=== PATIENT | male | born 1945 | race Caucasian/White ===

== ENCOUNTER 2018-06-06 07:52 | Inpatient (IN) ==
--- NOTE | 2018-05-30 08:27 | EKG Report ---
Test Performed on : 05/30/2018 08:19:53 AM Test Reason : PAT Blood Pressure : / mmHG Vent. Rate : 074 BPM Atrial Rate : 074 BPM P-R Int : 174 ms QRS Dur : 078 ms QT Int : 388 ms P-R-T Axes : 023 -23 001 degrees QTc Int : 430 ms Normal sinus rhythm. Voltage criteria for left ventricular hypertrophy Abnormal ECG When compared with ECG of 25-JUL-2015 14:36, No significant change was found Confirmed by Mekhi Pugh MD ([id number]) on 05/31/2018 7:19:18 AM
[2018-05-30 08:41] LABS: URINE SOURCE CLEAN CATCH
[2018-05-30 08:47] LABS: BASO# 0.01 X1000 (0.0-0.2); BASO% 0.2 % (0.0-0.8); EOS# 0.14 X1000 (0.0-0.7); EOS% 2.9 % (0.0-10.0); HEMATOCRIT 41.9 % (42.0-52.0); HEMOGLOBIN 13.9 g/dL (14.0-18.0); LYMPH# 1.27 X1000 (1.2-3.4); LYMPH% 26.5 % (20.5-51.1); MCH 29.5 PG (27-31); MCHC 33.2 g/dL (33-37); MONO# 0.33 X1000 (0.11-0.59); MONO% 6.9 % (1.7-9.3); MPV 10.8 FL (7.4-10.4); NEUT# 3.05 X1000 (1.4-6.5); NEUT% 63.5 % (42.2-75.2); PLT 138 X1000 (130-400); RBC 4.71 XMIL (4.7-6.1); RDW 14.4 % (11.5-14.5)
[2018-05-30 08:51] LABS: BILIRUBIN URINE NEGATIVE (NEGATIVE); BLOOD URINE NEGATIVE (NEGATIVE); COLOR YELLOW; GLUCOSE URINE NEGATIVE (NEGATIVE); KETONE URINE NEGATIVE (NEGATIVE); LEUKOCYTES URINE NEGATIVE (NEGATIVE); NITRITE URINE NEGATIVE (NEGATIVE); PROTEIN URINE NEGATIVE (NEGATIVE); SP GRAVITY URINE 1.013; TURBIDITY URINE CLEAR (CLEAR); UROBILINOGEN URINE NORMAL (NORMAL)
[2018-05-30 08:56] LABS: UR EPITHELIAL CELLS <10 /HPF (<10); URINE BACTERIA NEGATIVE /HPF; URINE RBC <10 /HPF (<10); URINE WBC <10 /HPF (<10)
[2018-05-30 09:05] LABS: INR 1.03; PROTIME 14.3 Seconds (11.0-16.0)
[2018-05-30 09:06] LABS: PTT 27.7 Seconds (22.3-41.8)
[2018-05-30 11:54] LABS: AGAP 13; BUN 15 mg/dL (8-22); CALCIUM 9.6 mg/dL (8.8-10.2); CHLORIDE 101 mmol/L (98-107); COSMO 282; ESTIMATED GFR > 60; GLUCOSE 156 mg/dL (70-104); POTASSIUM 4.2 mmol/L (3.5-5.1); SODIUM 139 mmol/L (136-145); TCO2 25 mmol/L (25-35)
[2018-06-06] MEDS ORDERED: DIPRIVAN 1% ONE (08:06)
[2018-06-06] MEDS ORDERED: XYLOCAINE-MPF 2% ONE (08:07)
[2018-06-06] MEDS ORDERED: FENTANYL ONE (08:08)
[2018-06-06] MEDS ORDERED: OFIRMEV 1000 MG/ISOTONIC SOLN 1,000 MG/100 ML BOTTLE ONE (08:09)
[2018-06-06] MEDS ORDERED: ZOFRAN ONE ×2 (08:09→11:06)
[2018-06-06] MEDS ORDERED: COLACE ONE (08:11)
[2018-06-06] MEDS ORDERED: PEPCID ONE (08:11)
[2018-06-06] MEDS ORDERED: LYRICA ONE (08:11)
[2018-06-06] MEDS ORDERED: REGLAN ONE (08:11)
[2018-06-06] MEDS ORDERED: CELEBREX ONE (08:12)
[2018-06-06] MEDS ORDERED: 1/2 NS 500 ML ONE (08:12)
[2018-06-06] MEDS ORDERED: KEFZOL 2 GM/D5W 2 GM/50 ML IVPB ONE (08:12)
[2018-06-06] MEDS ORDERED: MARCAINE 0.25% PF ONE (09:42)
[2018-06-06] MEDS ORDERED: CYKLOKAPRON 1,000 MG/NS 1,000 MG/100 ML IVPB ONE (09:42)
[2018-06-06] MEDS ORDERED: DURAMORPH ONE (09:42)
[2018-06-06] MEDS ORDERED: TORADOL ONE (09:42)
[2018-06-06] MEDS ORDERED: EXPAREL 1.3% ONE (09:42)
[2018-06-06] MEDS ORDERED: NEOSPORIN G.U. IRRIGANT ONE (09:43)
[2018-06-06] MEDS ORDERED: ROBINUL ONE (09:48)
[2018-06-06] MEDS ORDERED: SODIUM CHLORIDE 0.9% 10 ML ONE (09:48)
[2018-06-06] MEDS ORDERED: NORCURON ONE (09:48)
[2018-06-06] MEDS ORDERED: QUELICIN (DOSE) ONE (09:48)
[2018-06-06] MEDS ORDERED: SODIUM CHLORIDE 0.9% ONE (09:59)
[2018-06-06] MEDS ORDERED: NEO-SYNEPHRINE ONE (10:59)
[2018-06-06 11:12] LABS: URINE SOURCE CATH
[2018-06-06 11:21] LABS: BILIRUBIN URINE NEGATIVE (NEGATIVE); BLOOD URINE TRACE (NEGATIVE); COLOR YELLOW; GLUCOSE URINE NEGATIVE (NEGATIVE); KETONE URINE NEGATIVE (NEGATIVE); LEUKOCYTES URINE NEGATIVE (NEGATIVE); NITRITE URINE NEGATIVE (NEGATIVE); PROTEIN URINE NEGATIVE (NEGATIVE); SP GRAVITY URINE 1.002; TURBIDITY URINE CLEAR (CLEAR); UROBILINOGEN URINE NORMAL (NORMAL)
[2018-06-06 11:23] LABS: UR EPITHELIAL CELLS <10 /HPF (<10); URINE BACTERIA NEGATIVE /HPF; URINE WBC <10 /HPF (<10)
[2018-06-06] MEDS: MORPHINE ONE ×6 (12:29→13:02)
[2018-06-06] MEDS ORDERED: PHENERGAN ONE (12:41)
[2018-06-06] MEDS ORDERED: NS 1,000 ML ONE (12:42)
--- NOTE | 2018-06-06 12:43 | Diag Imaging Result Doc PS360 ---
EXAM: SHOULDER 1 VIEW LEFT 06/06/2018 HISTORY: post op total shoulder TECHNIQUE: Left shoulder one view portable COMMENT: There are no previous studies. There are degenerative changes in the acromioclavicular joint. There is a total shoulder arthroplasty. There is no definite evidence of acute fracture or dislocation. IMPRESSION: Postsurgical change and osteoarthritis. Electronically signed by Mickey Wagoner 06/06/2018 12:41 PM
[2018-06-06] MEDS ORDERED: OXY IR ONE (13:14)
[2018-06-06] MEDS ORDERED: MORPHINE IV PRN ×3 (13:45)
[2018-06-06] MEDS ORDERED: OXY IR PO PRN (13:45)
[2018-06-06] MEDS ORDERED: ZOFRAN PO PRN (13:45)
[2018-06-06] MEDS ORDERED: CYKLOKAPRON 1,000 MG in NS 100 ML IV ONE (16:00)
[2018-06-06] MEDS: TYLENOL PO SCH ×2 (16:05→19:57)
[2018-06-06] MEDS: NS 1,000 ML IV SCH (16:07)
--- NOTE | 2018-06-06 16:44 | OPERATIVE NOTE ---
PROCEDURE DATE: 06/06/2018 PREOPERATIVE DIAGNOSIS: Left degenerative glenohumeral arthritis. POSTOPERATIVE DIAGNOSIS: Left degenerative glenohumeral arthritis. PROCEDURE: Left reverse total shoulder arthroplasty with DePuy Delta Xtend size 10 press-fit stem, a 42 plus 6 humeral cup, a 42 eccentric Glenosphere, and a standard metaglene. SURGEON: Anthony Garcia MD. ASP NET MVC DEVELOPER: ANAND Angel. SECOND GAS DERRICK OPERATOR: James Sewell RN. ANESTHESIA: General. IV FLUIDS: 1400 mL lactated Ringer's. ESTIMATED BLOOD LOSS: 200 mL. COMPLICATIONS: None. INDICATION: The patient is a pleasant, 72-year-old male with a chronic history of worsening pain and discomfort in his left shoulder. Radiographic studies reveal findings consistent with glenohumeral arthritis and recommendation to proceed with left reverse total shoulder arthroplasty was offered. Risks and benefits of surgery were explained, including the risks of anesthesia, , bleeding, infection, failure to relieve pain, postoperative stiffness, nerve injury, blood clots, and other imponderables. All questions were answered and the patient and family wish to proceed with surgery. DETAILS OF OPERATION: Patient was taken to the operating room and placed supine on the operating table. Once adequate anesthesia was obtained the patient was placed in the semi-Schafer beach- chair position. The left shoulder was subsequently prepped and draped in sterile fashion. A standard deltopectoral incision made with a skin knife. Hemostasis was obtained using electrocautery. The deltopectoral interval was then developed. Silva retractors placed. Approximately 1 cm medial to the subscapularis tendon insertion this was released. A stay suture was placed in the medial portion of the tendon. The shoulder was then dislocated anteriorly. The remaining portion of the posterosuperior aspect of the rotator cuff was released. A starting reamer was then passed and sequential reaming was conducted. Intramedullary guide with a proximal humeral cutting block was pinned in position. The humeral head was then resected. A protective disk was then placed. Attention then turned to the glenoid. Circumferential dissection was performed with a deep knife. The reaming guide was then placed in position and guide pin was placed. Reaming was then conducted. The central hole was then dilated. The wound was copiously with antibiotic pulsatile lavage. A standard metaglene was then impacted in position. Three locking screws were placed and 1 nonlocking screw. It had good purchase. The wound was copiously once again. A 42 eccentric Glenosphere was then placed with the eccentricity placed inferiorly. Attention then turned to the proximal humerus where the intramedullary guide was placed in position and the proximal humerus was then reamed. After [*]performed the wound was copiously irrigated with antibiotic pulsatile lavage. A size 10 press-fit stem was impacted with autologous bone graft and had good fit. Trial cup size was performed and a 42 plus 6 appeared to be the correct size. The trial cup was removed. The wound was copiously irrigated with antibiotic pulsatile lavage. A 42 plus 6 humeral cup was then impacted, shoulder was reduced, carried through range of motion, and had good range of motion and good stability. Exparel was placed in the deep soft tissue. The wound was copiously irrigated once again. A #2 FiberWire was used to repair the subscapularis tendon. The remaining portion of the Exparel was placed in the deep soft tissue, as well as the subcutaneous tissue. The wound was copiously irrigated once again with antibiotic pulsatile lavage. A 2-0 Vicryl was then used to repair the subcutaneous tissue, followed by a running 2-0 Prolene. Benzoin and Steri-Strips applied. Adaptic, sterile 4 x 4, ABD pad, and tape was applied to the left shoulder, followed by a shoulder immobilizer. All counts correct. Patient tolerated the procedure well and was transferred to the recovery room in stable condition. cc: Anthony Garcia MD
[2018-06-06] MEDS: KEFZOL 2 GM/D5W 2 GM/50 ML IVPB IV SCH (18:49)
[2018-06-06] MEDS: PERIDEX MT SCH (19:55)
[2018-06-06] MEDS: PRINIVIL PO SCH (19:56)
[2018-06-06] MEDS: LIPITOR PO SCH (19:56)
[2018-06-06] MEDS: NEURONTIN PO SCH (19:56)
[2018-06-06] MEDS ORDERED: HUMULIN 70/30 SUBQ SCH (21:00)
[2018-06-06] MEDS ORDERED: GLUCOTROL XL PO SCH (21:00)
[2018-06-06] MEDS ORDERED: AMBIEN PO SCH (21:00)
[2018-06-06] MEDS ORDERED: INSULIN PEN NEEDLES ONE (22:49)
[2018-06-06] MEDS ORDERED: BENADRYL PO PRN (23:51)
[2018-06-06] MEDS: OXY IR PO PRN (23:56)
[2018-06-07] MEDS: PRINIVIL PO SCH ×2 (01:30→08:01)
[2018-06-07] MEDS: PERIDEX MT SCH ×2 (01:30→08:00)
[2018-06-07] MEDS: LIPITOR PO SCH (01:30)
[2018-06-07] MEDS: NEURONTIN PO SCH ×2 (01:30→08:00)
[2018-06-07] MEDS: TYLENOL PO SCH ×3 (01:31→08:01)
[2018-06-07] MEDS: KEFZOL 2 GM/D5W 2 GM/50 ML IVPB IV SCH (01:45)
[2018-06-07] MEDS: NS 1,000 ML IV SCH (01:45)
[2018-06-07 06:27] LABS: HEMATOCRIT 34.3 % (42.0-52.0); HEMOGLOBIN 11.1 g/dL (14.0-18.0)
[2018-06-07 06:37] LABS: AGAP 10; BUN 11 mg/dL (8-22); CALCIUM 7.4 mg/dL (8.8-10.2); CHLORIDE 102 mmol/L (98-107); COSMO 277; CREATININE 0.9 mg/dL (0.7-1.2); ESTIMATED GFR > 60; GLUCOSE 137 mg/dL (70-104); POTASSIUM 3.9 mmol/L (3.5-5.1); SODIUM 138 mmol/L (136-145); TCO2 26 mmol/L (25-35)
[2018-06-07 08:17] VITALS: BP 134/75
--- NOTE | 2018-06-07 08:29 | PROGRESS NOTE ---
DATE: 06/07/2018 SUBJECTIVE: The patient is a pleasant 72-year-old male who is 1 day status post left reverse shoulder arthroplasty. He is currently resting comfortably. OBJECTIVE: On physical exam, the patient's left upper extremity dressing is intact. He is neurovascularly intact distally. LABORATORY DATA: His hemoglobin is 11.1 hematocrit 34.3. IMPRESSION: Postoperative day #1 status post left reverse shoulder arthroplasty. PLANS: At this point, we will change his dressing, discontinue his Calderon and Hep-Lock his IV. We are discharging home. Will arrange for outpatient physical therapy. cc: Anthony Garcia MD
[2018-06-07] MEDS ORDERED: FLOMAX PO SCH (09:00)
[2018-06-07] MEDS: OXY IR PO PRN (10:24)
== END 2018-06-07 11:22 | disposition home or self-care (01) | DRG 483 ==
LOC: SURHOLD 07:52 → 4N 10:56
PROVIDERS: ADMIT Orthopaedic Surgery Adult Reconstructive Orthopaedic Surgery; ATTEND Orthopaedic Surgery Adult Reconstructive Orthopaedic Surgery
CPT/HCPCS: 73020; 80048; 81001; 82948; 85014; 85018; 85025; 85610; 85730; 86850; 86900; 86901; 88305; 88311; 93005; 93010; 94760; 94761; 94799; 97162; 97530; A9270; C9290; J0131; J0330; J0690; J1885; J2270; J2274; J2275; J2370; J2405; J2550; J3010; J7030; Q9974; S0020; XXXXX

== ENCOUNTER 2019-04-17 07:12 | Inpatient (IN) ==
--- NOTE | 2019-04-10 09:59 | EKG Report ---
Test Performed on : 04/10/2019 09:54:58 AM Test Reason : PAT Blood Pressure : / mmHG Vent. Rate : 076 BPM Atrial Rate : 076 BPM P-R Int : 150 ms QRS Dur : 082 ms QT Int : 378 ms P-R-T Axes : 041 -23 -08 degrees QTc Int : 425 ms Normal sinus rhythm. Moderate voltage criteria for LVH, may be normal variant Borderline ECG When compared with ECG of 30-MAY-2018 08:19, No significant change was found Confirmed by Hema GEE, Javon Mojica ([id number]) on 04/10/2019 10:22:47 AM
[2019-04-10 10:02] LABS: URINE SOURCE CLEAN CATCH
[2019-04-10 10:13] LABS: BASO# 0.01 X1000 (0.0-0.2); BASO% 0.2 % (0.0-0.8); EOS# 0.09 X1000 (0.0-0.7); EOS% 1.9 % (0.0-10.0); HEMATOCRIT 41.3 % (42.0-52.0); HEMOGLOBIN 13.8 g/dL (14.0-18.0); LYMPH% 24.9 % (20.5-51.1); MCH 29.1 PG (27-31); MCHC 33.4 g/dL (33-37); MCV 86.9 FL (81-99); MONO# 0.33 X1000 (0.11-0.59); MONO% 6.9 % (1.7-9.3); MPV 10.8 FL (7.4-10.4); NEUT# 3.18 X1000 (1.4-6.5); NEUT% 66.1 % (42.2-75.2); PLT 132 X1000 (130-400); RBC 4.75 XMIL (4.7-6.1); RDW 14.8 % (11.5-14.5); WBC 4.81 X1000 (4.8-10.8)
[2019-04-10 10:16] LABS: BILIRUBIN URINE NEGATIVE (NEGATIVE); BLOOD URINE NEGATIVE (NEGATIVE); COLOR YELLOW; GLUCOSE URINE NEGATIVE (NEGATIVE); KETONE URINE NEGATIVE (NEGATIVE); LEUKOCYTES URINE NEGATIVE (NEGATIVE); NITRITE URINE NEGATIVE (NEGATIVE); PH URINE 6.5; PROTEIN URINE NEGATIVE (NEGATIVE); SP GRAVITY URINE 1.014; TURBIDITY URINE CLEAR (CLEAR); UROBILINOGEN URINE NORMAL (NORMAL)
[2019-04-10 10:18] LABS: UR EPITHELIAL CELLS <10 /HPF (<10); URINE BACTERIA NEGATIVE /HPF; URINE RBC <10 /HPF (<10); URINE WBC <10 /HPF (<10)
[2019-04-10 10:22] LABS: INR 1.06
[2019-04-10 10:23] LABS: PTT 27.1 Seconds (22.3-41.8)
[2019-04-10 10:28] LABS: HEMOGLOBIN A1C 7.6 % (4.8-6.0)
[2019-04-10 10:54] LABS: AGAP 14; BUN 12 mg/dL (8-22); CALCIUM 8.9 mg/dL (8.8-10.2); CHLORIDE 101 mmol/L (98-107); COSMO 281; ESTIMATED GFR > 60; GLUCOSE 170 mg/dL (70-104); POTASSIUM 4.8 mmol/L (3.5-5.1); SODIUM 139 mmol/L (136-145); TCO2 24 mmol/L (25-35)
[2019-04-17] MEDS ORDERED: VERSED ONE (07:53)
[2019-04-17] MEDS ORDERED: FENTANYL ONE (07:53)
[2019-04-17] MEDS ORDERED: DIPRIVAN 1% ONE ×2 (07:53→10:04)
[2019-04-17] MEDS ORDERED: ROBINUL ONE (07:53)
[2019-04-17] MEDS ORDERED: XYLOCAINE-MPF 2% ONE ×2 (07:53→10:07)
[2019-04-17] MEDS ORDERED: COLACE ONE (08:06)
[2019-04-17] MEDS ORDERED: PEPCID ONE (08:06)
[2019-04-17] MEDS ORDERED: REGLAN ONE (08:06)
[2019-04-17] MEDS ORDERED: LYRICA ONE (08:06)
[2019-04-17] MEDS ORDERED: KEFZOL 1 GM/D5W 2 GM/100 ML IVPB ONE (08:07)
[2019-04-17] MEDS ORDERED: LR 1,000 ML ONE (08:07)
[2019-04-17] MEDS ORDERED: CELEBREX ONE (08:07)
[2019-04-17] MEDS ORDERED: MARCAINE 0.25% PF ONE (09:07)
[2019-04-17] MEDS ORDERED: DURAMORPH ONE (09:07)
[2019-04-17] MEDS ORDERED: TORADOL ONE ×2 (09:07→09:59)
[2019-04-17] MEDS ORDERED: CYKLOKAPRON 1,000 MG/NS 1,000 MG/100 ML IVPB ONE ×2 (09:08→09:10)
[2019-04-17] MEDS ORDERED: VANCOMYCIN ONE (09:08)
[2019-04-17] MEDS ORDERED: SODIUM CHLORIDE 0.9% ONE (09:08)
[2019-04-17] MEDS ORDERED: NEOSPORIN G.U. IRRIGANT ONE (09:10)
[2019-04-17] MEDS ORDERED: EXPAREL 1.3% ONE (09:10)
[2019-04-17] MEDS ORDERED: OFIRMEV 1000 MG/ISOTONIC SOLN 1,000 MG/100 ML BOTTLE ONE (09:45)
[2019-04-17] MEDS ORDERED: DECADRON ONE (09:45)
[2019-04-17 10:17] LABS: URINE SOURCE CATH
[2019-04-17 10:21] LABS: BILIRUBIN URINE NEGATIVE (NEGATIVE); BLOOD URINE TRACE (NEGATIVE); COLOR YELLOW; GLUCOSE URINE NEGATIVE (NEGATIVE); KETONE URINE NEGATIVE (NEGATIVE); LEUKOCYTES URINE NEGATIVE (NEGATIVE); NITRITE URINE NEGATIVE (NEGATIVE); PROTEIN URINE TRACE mg/dL (NEGATIVE); SP GRAVITY URINE 1.023; TURBIDITY URINE CLEAR (CLEAR); UROBILINOGEN URINE NORMAL (NORMAL)
[2019-04-17 10:23] LABS: UR EPITHELIAL CELLS <10 /HPF (<10); URINE BACTERIA NEGATIVE /HPF; URINE RBC <10 /HPF (<10); URINE WBC <10 /HPF (<10)
[2019-04-17] MEDS ORDERED: ZOFRAN ONE (11:35)
[2019-04-17] MEDS ORDERED: NS 1,000 ML ONE (11:49)
[2019-04-17] MEDS ORDERED: OXY IR PO PRN ×2 (12:15)
[2019-04-17] MEDS ORDERED: MORPHINE IV PRN ×2 (12:15)
[2019-04-17] MEDS ORDERED: ZOFRAN PO PRN (12:15)
--- NOTE | 2019-04-17 12:31 | Diag Imaging Result Doc PS360 ---
EXAM: KNEE 1-2 VIEWS-RIGHT INDICATION: post total knee right TECHNIQUE: One view COMPARISON: None. FINDINGS: There has been a recent right knee arthroplasty. Arthroplasty hardware is in the expected position. There is no evidence of periprosthetic fracture. Anterior skin germania and a drainage catheter are in place. IMPRESSION: Satisfactory postoperative knee. Electronically signed by Serg Gamboa 04/17/2019 12:31 PM
[2019-04-17] MEDS: NS 1,000 ML IV SCH (12:42)
[2019-04-17] MEDS: KEFZOL 2 GM/D5W 2 GM/50 ML IVPB IV SCH (18:04)
--- NOTE | 2019-04-17 20:54 | OPERATIVE NOTE ---
PROCEDURE DATE: 04/17/2019 PREOPERATIVE DIAGNOSIS: Degenerative arthritis of the right knee. POSTOPERATIVE DIAGNOSIS: Degenerative arthritis of the right knee. PROCEDURE: Right total knee arthroplasty with a DePuy Attune size 8 posterior stabilized femur, a size 8 tibial tray, a 7 mm rotating platform tibial insert, and a 38 mm medialized anatomic patella. SURGEON: Dr. Anthony Garcia. FISH FARMER: ANAND Sinclair, who was necessary for proper positioning, retraction and manipulation of the extremity during the case, and improved efficiency. SECOND FLOTATION TENDER HELPER: ANAND Riley. ANESTHESIA: Spinal. IV FLUIDS: 1300 mL lactated Ringer's. ESTIMATED BLOOD LOSS: 50 mL. TOURNIQUET TIME: 100 minutes at 300 mmHg. COMPLICATIONS: None. INDICATION: The patient is a 73-year-old male who has longstanding history of pain and discomfort of his right knee. X-rays revealed significant degenerative arthritis and recommendation to proceed with right total knee arthroplasty was offered. Risks and benefits of surgery were explained, including the risks of anesthesia, , bleeding, infection, failure to relieve pain, postoperative stiffness, nerve injury, blood clots, and other imponderables. All questions were answered and the patient and family wished to proceed with surgery. DETAILS OF OPERATION: The patient was taken to the operating room and underwent spinal anesthesia. After adequate anesthesia was obtained, he was placed supine on the operating table. Right lower extremity was subsequently prepped and draped in the usual sterile fashion. An Esmarch was used to exsanguinate the right lower extremity, and tourniquet was inflated to 300 mmHg. A standard anterior incision was made with a skin knife. Medial and lateral skin envelopes were developed. A standard medial parapatellar arthrotomy was then performed. Patellar fat pad was excised. The patella was everted and resected in standard fashion. Protective disk was then placed. Attention was then turned to the distal femur where starting approximately 1 cm anterior to the PCL insertion, a starting reamer was passed. Intramedullary guide with a distal femoral cutting block was pinned in position. Distal femoral cut was then performed in standard fashion. A sizing block was placed in a size 8. Corresponding pins were placed. A size 8 cutting block was placed in position. Anterior, posterior, and chamfer cuts were then made. Attention was then turned to the proximal tibia where using extramedullary guide, the proximal tibia cutting block was pinned in position. It had good alignment confirmed with the alignment segundo. The proximal tibia was then resected. Medial and lateral menisci were excised. A curved osteotome was used to remove the posterior osteophytes off the distal femur. A spacer block was placed and had good soft tissue balance in both flexion and extension. Attention then turned to the proximal tibia where a size 8 tibial tray appeared to be correct size. This was pinned in position. This was followed by a central reamer and a fin punch. A box cutting guide was pinned on the distal femur. A box cut was performed. A trial tibial insert was then placed and 2 lug holes were drilled. Trial tibial insert was then placed. Attention was turned to the patella. Protective disc was removed. A size 38 appeared to correct size. Corresponding holes were drilled. The trial patellar components were then placed. The patient did have some lateral translation with flexion. Therefore, a lateral release was performed. The patient had good patellofemoral tracking after this had been performed. The trial components were then removed. Copious irrigation was performed with antibiotic pulsatile lavage while vancomycin was mixed with cement on the back table. Sequential cementing was then performed first with the tibial tray and excess cement was removed with a Hector, followed by the femoral component and excess cement was removed with a Hector, followed by a trial tibial insert. The knee was then placed in full extension and axial loading was maintained while cement cured. The patellar components were cemented in standard fashion. Patellar clamp was placed. While cement was curing, Exparel was placed in deep soft tissue, as well as subcutaneous tissue. After cement had cured, peripheral cement was removed with a small osteotome. The 7 mm rotating platform tibial insert appeared to be correct size. The trial insert was removed. Exparel was placed in the deep posterior capsule followed by copious irrigation once again. The 7 mm rotating platform tibial insert was then placed. The knee was then carried through a range of motion and had good soft tissue balancing, good range of motion, and good patellofemoral tracking. A 1/8 Hemovac drain was placed and was not sewn in. Copious irrigation was then performed once again with antibiotic pulsatile lavage. The #1 Vicryl was then used to repair the arthrotomy followed by 2-0 Vicryl to repair the subcutaneous tissue and skin germania. Adaptic, sterile 4 x 4's, Webril, and Alex wrap were applied to the right lower extremity. Patient tolerated the procedure well with no complications. Transferred to the recovery room in stable condition. cc: Anthony Garcia MD
[2019-04-17] MEDS ORDERED: AMBIEN PO SCH (21:00)
[2019-04-17] MEDS ORDERED: HUMULIN 70/30 SUBQ SCH (21:00)
[2019-04-17] MEDS: PERIDEX MT SCH (22:27)
[2019-04-17] MEDS: COLACE PO SCH (22:27)
[2019-04-17] MEDS: PRINIVIL PO SCH (22:27)
[2019-04-17] MEDS: NEURONTIN PO SCH (22:29)
[2019-04-17] MEDS ORDERED: INSULIN PEN NEEDLES ONE (22:40)
[2019-04-17] MEDS ORDERED: CARDIZEM IV ONE (23:06)
[2019-04-18] MEDS: MORPHINE IV PRN ×2 (02:03→06:40)
[2019-04-18] MEDS: NS 1,000 ML IV SCH (02:11)
[2019-04-18] MEDS: KEFZOL 2 GM/D5W 2 GM/50 ML IVPB IV SCH (04:10)
[2019-04-18] MEDS ORDERED: PROTONIX PO SCH (07:00)
[2019-04-18 07:32] LABS: HEMATOCRIT 33.7 % (42.0-52.0); HEMOGLOBIN 11.2 g/dL (14.0-18.0)
[2019-04-18 07:52] LABS: AGAP 10; BUN 14 mg/dL (8-22); CALCIUM 8.3 mg/dL (8.8-10.2); CHLORIDE 101 mmol/L (98-107); COSMO 280; CREATININE 0.9 mg/dL (0.7-1.2); ESTIMATED GFR > 60; GLUCOSE 239 mg/dL (70-104); POTASSIUM 4.1 mmol/L (3.5-5.1); SODIUM 136 mmol/L (136-145); TCO2 25 mmol/L (25-35)
[2019-04-18] MEDS: COLACE PO SCH (08:44)
[2019-04-18] MEDS: PRINIVIL PO SCH (08:44)
[2019-04-18] MEDS: PERIDEX MT SCH (08:45)
[2019-04-18] MEDS: NEURONTIN PO SCH (08:50)
[2019-04-18] MEDS ORDERED: ONGLYZA PO SCH (09:00)
[2019-04-18] MEDS ORDERED: ASPIRIN PO SCH (09:00)
[2019-04-18] MEDS ORDERED: FLOMAX PO SCH (09:00)
--- NOTE | 2019-04-18 11:00 | ORTHOPAEDICS PROGRESS NOTE ---
DATE: 04/18/2019 SUBJECTIVE: The patient is a 73-year-old male, who is 1 day status post right total knee arthroplasty. He is currently resting comfortably. PHYSICAL EXAMINATION: The patient's right lower extremity dressing is intact. Calf is soft. He is neurovascularly intact distally, able to perform straight leg raise. Has active dorsiflexion, plantar flexion. LABS: His labs are pending. IMPRESSION: Postoperative day #1 status post right total knee arthroplasty. PLAN: We will discontinue his drain and change his dressing. We will plan on discharging home after physical therapy. All questions answered. cc: Anthony Garcia MD
[2019-04-18 12:54] VITALS: BP 132/73
[2019-04-18] MEDS ORDERED: GLUCOTROL XL PO SCH (18:00)
== END 2019-04-18 11:04 | disposition home or self-care (01) | DRG 470 ==
LOC: OPS 07:12 → PAT 07:12 → 4N 07:12 → DIRADM 07:13 → OBSVTOIN 12:21 → OPS 04-18 11:03
PROVIDERS: ADMIT Orthopaedic Surgery Adult Reconstructive Orthopaedic Surgery; ATTEND Orthopaedic Surgery Adult Reconstructive Orthopaedic Surgery